=== PATIENT | female | born 1965 | race Caucasian/White ===

== ENCOUNTER 2018-10-18 12:10 | Emergency (ER) | payer BC, OTHER ==
[~2018-10-18] VITALS: Ht 177.8 cm; Wt 122.7 kg
[~2018-10-18 12:10] MED LIST: ACET-812 PO; MULT1TAB74 PO; PANT40TA4 PO
[2018-10-18] MEDS ORDERED: ibuprofen tablet 400 MG TABLET PO ONE (12:40)
[2018-10-18] MEDS ORDERED: ibuprofen 200mg tablet PO ONE (12:40)
[2018-10-18] MEDS ORDERED: nitroGLYCERIN 0.4mg SUBLingual tab SL PRN (12:40)
[2018-10-18] MEDS ORDERED: mag hydrox/Alum hydrox/simeth 30ml oral suspension PO ONE (12:50)
[2018-10-18] MEDS ORDERED: LIDOcaine Viscous 15ml cup PO ONE (12:50)
[2018-10-18 12:51] LABS: BASOPHILS % (AUTO) 0.4 % (0-1); EOSINOPHILS # (AUTO) 0.1 X10'3 (0-0.9); EOSINOPHILS % (AUTO) 2.8 % (0-6); HEMATOCRIT 38.8 % (35.0-45.0); HEMOGLOBIN 13.1 g/dl (12.0-16.0); LYMPHOCYTES # (AUTO) 1.6 X10'3 (1.1-4.8); LYMPHOCYTES % (AUTO) 29.9 % (21-51); MEAN CORPUSCULAR HEMOGLOBIN 29.5 PG (27.0-31.0); MEAN CORPUSCULAR HGB CONC 33.8 % (33.0-36.5); MEAN CORPUSCULAR VOLUME 87.2 FL (78-98); MEAN PLATELET VOLUME 7.4 FL (7.4-10.4); MONOCYTES # (AUTO) 0.3 X10'3 (0-0.9); MONOCYTES % (AUTO) 5.5 % (2-12); NEUTROPHILS # (AUTO) 3.3 X10'3 (1.8-7.7); NEUTROPHILS % (AUTO) 61.4 % (42-75); PLATELET COUNT 182 X10'3 (140-440); RED BLOOD COUNT 4.46 X10'6 (4.20-5.60); RED CELL DISTRIBUTION WIDTH 13.3 % (11.5-14.5); WHITE BLOOD COUNT 5.3 X10'3 (4.5-11.0)
[2018-10-18 13:05] LABS: ALANINE AMINOTRANSFERASE 42 U/L (12-78); ALBUMIN 3.8 G/DL (3.4-5.0); ALBUMIN/GLOBULIN RATIO 1.3 (1.1-1.5); ALKALINE PHOSPHATASE 105 IU/L (46-116); ANION GAP 10 (8-16); ASPARTATE AMINO TRANSFERASE 23 U/L (10-37); BILIRUBIN,TOTAL 0.4 MG/DL (0.1-1.0); BLOOD UREA NITROGEN 13 MG/DL (7-18); BUN/CREATININE RATIO 17.1 (6.6-38.0); CALCIUM 9.6 MG/DL (8.5-10.1); CHLORIDE 106 MMOL/L (99-107); CREATININE 0.76 MG/DL (0.40-0.90); GLUCOSE 108 MG/DL (70-104); POTASSIUM 3.8 MMOL/L (3.5-5.1); SODIUM 144 MMOL/L (135-145); TOTAL CARBON DIOXIDE 27.8 MMOL/L (24-32); TOTAL PROTEIN 6.8 G/DL (6.4-8.2); eGFR 80 ML/MIN
[2018-10-18 13:31] LABS: PARTIAL THROMBOPLASTIN TIME 27 SECONDS (22-32); PROTHROMBIN TIME 10.1 SECONDS (9.0-12.0)
[2018-10-18 15:49] VITALS: BP 127/88
== END 2018-10-18 15:53 | disposition home or self-care (01) ==
LOC: ER 12:10
DX: R07.89 Other chest pain (principal); Z98.890 Other specified postprocedural states; Z79.899 Other long term (current) drug therapy; Z88.5 Allergy status to narcotic agent; Z88.6 Allergy status to analgesic agent
CPT/HCPCS: 36415; 71045; 80053; 83880; 84484; 85025; 85610; 85730; 93005; 99284

== ENCOUNTER 2022-01-21 11:20 | Day surgery (SDC) | payer BC ==
[2022-01-20 10:27] LABS: BASOPHILS % (AUTO) 0.3 % (0-1); EOSINOPHILS # (AUTO) 0.2 X10'3 (0-0.9); EOSINOPHILS % (AUTO) 2.8 % (0-6); LYMPHOCYTES % (AUTO) 27.9 % (21-51); MEAN CORPUSCULAR HEMOGLOBIN 29.1 PG (27.0-31.0); MEAN CORPUSCULAR HGB CONC 34.5 g/dL (33.0-36.5); MEAN CORPUSCULAR VOLUME 84.3 FL (78-98); MEAN PLATELET VOLUME 7.7 FL (7.4-10.4); MONOCYTES # (AUTO) 0.6 X10'3 (0-0.9); MONOCYTES % (AUTO) 7.9 % (2-12); NEUTROPHILS # (AUTO) 4.4 X10'3 (1.8-7.7); NEUTROPHILS % (AUTO) 61.1 % (42-75); PRE OP HEMATOCRIT 42.4 % (35.0-45.0); PRE OP HEMOGLOBIN 14.6 g/dL (12.0-16.0); PRE OP PLATELET COUNT 191 X10'3 (140-440); RED BLOOD COUNT 5.02 X10'6 (4.20-5.60); RED CELL DISTRIBUTION WIDTH 13.6 % (11.5-14.5)
[2022-01-20 10:43] LABS: ALBUMIN 4.2 G/DL (3.4-5.0); ALBUMIN/GLOBULIN RATIO 1.2 (1.1-1.5); ALKALINE PHOSPHATASE 116 IU/L (46-116); BLOOD UREA NITROGEN 15 MG/DL (7-18); BUN/CREATININE RATIO 20.3 (6.6-38.0); CALCIUM 8.9 MG/DL (8.5-10.1); CHLORIDE 106 MMOL/L (99-107); CREATININE 0.74 MG/DL (0.40-0.90); PRE OP ALT 45 U/L (30-65); PRE OP ANION GAP 5 (8-16); PRE OP AST 28 U/L (10-37); PRE OP BILIRUB, TOTAL 0.4 MG/DL (0.0-1.0); PRE OP GLUCOSE 122 MG/DL (70-104); PRE OP POTASSIUM 3.5 MMOL/L (3.4-5.1); PRE OP SODIUM 141 MMOL/L (135-145); TOTAL CARBON DIOXIDE 29.9 MMOL/L (24-32); TOTAL PROTEIN 7.7 G/DL (6.4-8.2); eGFR 81 ML/MIN
[~2022-01-21] VITALS: Ht 177.8 cm; Wt 131.5 kg
[2022-01-21] VITALS (10 sets, daily range): BP systolic 114–135; BP diastolic 51–60
[~2022-01-21 11:20] MED LIST changes: -ACET-812 PO; +ALBU8.5H17 IH; +ASCO-134 PO; +ATEN25TA2 PO; +FURO20TA4 PO; +HYDR12.55 PO; +LORA-641 PO; +MULT-620 PO; -MULT1TAB74 PO; -PANT40TA4 PO; +POTA10TA37 PO; +ZINC50TA60 PO; +ceFAZolin inj. 3,000 MG in normal saline 100ml IV soln 100 ML IV ONE; +famotidine 20mg tablet PO ONE; +ringers solution, lacted 1,000 ML IV SCH; +vancomycin 1,500 MG in NS 300ml IV soln IV ONE
--- NOTE | 2022-01-21 13:13 | NUR ---
PT COMPLAINS OF PAIN AT IV SITE, NO SIGN OF INFILTRATION, VANCOMYCIN RATE DECREASED WITH GOOD RESULTS
--- NOTE | 2022-01-21 14:13 | NUR ---
IV SITE RECHECKED, NO SIGN OF INFILTRATION, PT DENIES PAIN AT THE SITE NOW SINCE VANCOMYCIN RATE WAS DECREASED.
[2022-01-21] MEDS ORDERED: LIDOcaine 1% (10mg/ml) 2ml vial ONE (15:03)
[2022-01-21] MEDS ORDERED: triamcinolone acetonide 40mg/ml inj ONE ×2 (16:16→17:19)
[2022-01-21] MEDS ORDERED: BUPIVAcaine 0.5% inj/PF 30 ML ONE ×2 (16:17→17:19)
[2022-01-21] MEDS ORDERED: midazolam 1 mg/ML 2ml injection ONE (16:38)
[2022-01-21] MEDS ORDERED: fentaNYL /PF 50mcg/ml 5ml ampule ONE (16:50)
[2022-01-21] MEDS ORDERED: propofol inj 20 ML IV ONE (16:52)
[2022-01-21] MEDS ORDERED: dexamethasone sod phosphate 4mg/ml inj. ONE (16:52)
[2022-01-21] MEDS ORDERED: LIDOcaine 2% (20mg/ml) 5ml vial ONE (16:52)
[2022-01-21] MEDS ORDERED: ondansetron/PF 4mg/2ml inj ONE (16:53)
[2022-01-21] MEDS ORDERED: ketorolac trometh. 30mg/ml inj. IV ONE (17:00)
[2022-01-21] MEDS ORDERED: ondansetron/PF 4mg/2ml inj IV PRN (17:00)
[2022-01-21] MEDS ORDERED: HYDROmorphone/PF 0.2 MG/ML SYRINGE IV PRN ×2 (17:00)
[2022-01-21] MEDS ORDERED: ringers solution, lacted 1,000 ML IV SCH (17:00)
[2022-01-21] MEDS ORDERED: proCHLORperazine 10 MG/2 ml inj IV PRN (17:00)
[2022-01-21] MEDS ORDERED: meperidine/PF 25mg/ml syringe IV PRN ×3 (17:00)
[2022-01-21] MEDS ORDERED: acetaminophen 1,000mg/100ml IV 100 ML IV PRN (17:00)
[2022-01-21] MEDS ORDERED: labetalol 20mg/4ml (5mg/ml) syringe IV PRN (17:00)
[2022-01-21] MEDS ORDERED: hydrALAZINE 20mg/ml inj. IV PRN (17:00)
[2022-01-21] MEDS ORDERED: BUPIVAcaine 0.5% inj/PF 30 ml vial IJ ONE (17:30)
--- NOTE | 2022-01-21 18:00 | NUR ---
Received from OR via BED, accompanied by Anesthesiologist DR WHITMORE and report given by Anesthesiologist. PT DROWSY, DENIES PAIN, RIGHT KNEE W/EMILIO WRAP COVERING INCISION/DRSG CDI, ICE PACK PLACED. Addendum: 01/21/22 at 1818 by Candace Rubio RN Amended: Links added.
[2022-01-21] MEDS ORDERED: oxyCODONE/APAP 5-325mg tablet PO ONE (18:50)
--- NOTE | 2022-01-21 19:40 | NUR ---
PT UP AND ABLE TO AMBULATE TO BATHROOM WITH WALKER SAFELY, PT VOIDED, PAIN IMPROVED. D/C INSTRUCTIONS GIVEN AND GONE OVER W/PT AND PTS WHO VERBALIZED UNDERSTANDING. PT D/CD TO HOME VIA W/C TO PRIVATE VEHICLE W/O INCIDENT. Addendum: 01/21/22 at 1949 by Candace Rubio RN Amended: Links added.
== END 2022-01-21 19:40 | disposition home or self-care (01) ==
LOC: PAS 11:20
PROVIDERS: ATTEND Orthopaedic Surgery
DX: S83.231A Complex tear of medial meniscus, current injury, right knee, initial encounter (principal); S83.271A Complex tear of lateral meniscus, current injury, right knee, initial encounter; M17.11 Unilateral primary osteoarthritis, right knee; M94.261 Chondromalacia, right knee; J45.909 Unspecified asthma, uncomplicated; I10 Essential (primary) hypertension; G43.909 Migraine, unspecified, not intractable, without status migrainosus; E66.01 Morbid (severe) obesity due to excess calories; Z68.41 Body mass index [BMI] 40.0-44.9, adult; Z90.49 Acquired absence of other specified parts of digestive tract; Z98.890 Other specified postprocedural states; Z90.710 Acquired absence of both cervix and uterus; Z85.828 Personal history of other malignant neoplasm of skin; Z86.14 Personal history of Methicillin resistant Staphylococcus aureus infection; Z79.899 Other long term (current) drug therapy; Z20.822 Contact with and (suspected) exposure to COVID-19; Z88.5 Allergy status to narcotic agent; X58.XXXA Exposure to other specified factors, initial encounter; Y93.89 Activity, other specified; Y92.89 Other specified places as the place of occurrence of the external cause; Y99.8 Other external cause status
CPT/HCPCS: 29873; 29879; 29880; 36415; 80053; 82948; 85025; 87635; 93005; C9803; J0131; J0690; J1100; J1885; J2175; J2250; J2405; J2704; J3010; J3301; J3370; J3490; J7040; J7120; S0020; Z7506; Z7508; Z7512; A4215; A4618; A6250; A6449; A7000

== ENCOUNTER 2022-05-06 23:07 | Inpatient (IN) | payer BC ==
[~2022-05-06] VITALS: Ht 177.8 cm; Wt 134.1 kg
[~2022-05-06 23:07] MED LIST changes: -ceFAZolin inj. 3,000 MG in normal saline 100ml IV soln 100 ML IV ONE; -famotidine 20mg tablet PO ONE; -ringers solution, lacted 1,000 ML IV SCH; -vancomycin 1,500 MG in NS 300ml IV soln IV ONE
[2022-05-07] VITALS (8 sets, daily range): BP systolic 129–152; BP diastolic 56–66
[2022-05-07 01:06] LABS: ALANINE AMINOTRANSFERASE 34 U/L (12-78); ALBUMIN 3.8 G/DL (3.4-5.0); ALBUMIN/GLOBULIN RATIO 1.3 (1.1-1.5); ALKALINE PHOSPHATASE 98 IU/L (46-116); ANION GAP 7 (8-16); ASPARTATE AMINO TRANSFERASE 19 U/L (10-37); BILIRUBIN,TOTAL 0.4 MG/DL (0.1-1.0); BLOOD UREA NITROGEN 15 MG/DL (7-18); BUN/CREATININE RATIO 17.2 (6.6-38.0); CALCIUM 8.9 MG/DL (8.5-10.1); CHLORIDE 105 MMOL/L (99-107); CREATININE 0.87 MG/DL (0.40-0.90); GLUCOSE 125 MG/DL (70-104); POTASSIUM 3.6 MMOL/L (3.5-5.1); SODIUM 142 MMOL/L (135-145); TOTAL CARBON DIOXIDE 29.6 MMOL/L (24-32); TOTAL PROTEIN 6.7 G/DL (6.4-8.2); eGFR 67 ML/MIN
[2022-05-07 01:29] LABS: BASOPHILS % (AUTO) 0.5 % (0-1); EOSINOPHILS # (AUTO) 0.2 X10'3 (0-0.9); EOSINOPHILS % (AUTO) 2.2 % (0-6); HEMATOCRIT 38.7 % (35.0-45.0); HEMOGLOBIN 13.8 g/dl (12.0-16.0); LYMPHOCYTES # (AUTO) 2.5 X10'3 (1.1-4.8); LYMPHOCYTES % (AUTO) 25.6 % (21-51); MEAN CORPUSCULAR HEMOGLOBIN 30.1 PG (27.0-31.0); MEAN CORPUSCULAR HGB CONC 35.7 g/dL (33.0-36.5); MEAN CORPUSCULAR VOLUME 84.2 FL (78-98); MEAN PLATELET VOLUME 7.7 FL (7.4-10.4); MONOCYTES # (AUTO) 0.7 X10'3 (0-0.9); MONOCYTES % (AUTO) 6.9 % (2-12); NEUTROPHILS # (AUTO) 6.3 X10'3 (1.8-7.7); NEUTROPHILS % (AUTO) 64.8 % (42-75); PLATELET COUNT 179 X10'3 (140-440); RED CELL DISTRIBUTION WIDTH 13.9 % (11.5-14.5); WHITE BLOOD COUNT 9.7 X10'3 (4.5-11.0)
[2022-05-07] MEDS ORDERED: enoxaparin 100mg/ml syringe SUBCUT ONE (01:30)
[2022-05-07] MEDS ORDERED: nitroGLYCERIN 0.2mg/hour patch TD ONE (01:30)
[2022-05-07] MEDS ORDERED: normal saline 1000ml 1,000 ML IV ONE (01:30)
[2022-05-07] MEDS ORDERED: mag hydrox/Alum hydrox/simeth 30ml oral suspension PO PRN (02:15)
[2022-05-07] MEDS ORDERED: diphenhydrAMINE 50 mg/ml inj IV PRN (02:15)
[2022-05-07] MEDS ORDERED: HYDROcodone/acetaminophen 10/325mg tab PO PRN (02:15)
[2022-05-07] MEDS ORDERED: bisacodyl 10mg suppository rectal RC PRN (02:15)
[2022-05-07] MEDS ORDERED: normal saline 1000ml 1,000 ML IV SCH (02:15)
[2022-05-07] MEDS ORDERED: magnesium hydroxide 30ml (MOM) UD suspension PO PRN (02:15)
[2022-05-07] MEDS ORDERED: ondansetron/PF 4mg/2ml inj IV PRN (02:15)
[2022-05-07] MEDS ORDERED: acetaminophen 650mg rectal suppository RC PRN (02:15)
[2022-05-07] MEDS ORDERED: diphenhydrAMINE 25mg capsule PO PRN (02:15)
[2022-05-07] MEDS ORDERED: ondansetron 4mg rapidly disintigrating tab PO PRN (02:15)
[2022-05-07] MEDS ORDERED: acetaminophen 325mg tablet PO PRN ×2 (02:15)
[2022-05-07] MEDS ORDERED: morphine 2 MG/ML inj. syringe IV PRN ×2 (02:15)
[2022-05-07] MEDS ORDERED: HYDROmorphone inj. 0.5 MG/0.5 ML DISP.SYRIN IV PRN (02:15)
[2022-05-07] MEDS ORDERED: HYDROcodone/acetaminophen 5mg/325mg tablet PO PRN (02:15)
[2022-05-07] MEDS ORDERED: metoprolol tartrate 1mg/ml inj IV PRN (02:20)
[2022-05-07] MEDS ORDERED: nitroGLYCERIN 0.4mg SUBLingual tab SL PRN (02:20)
[2022-05-07 02:41] LABS: HEMOGLOBIN A1C 5.8 % (4.5-6.2)
[2022-05-07 02:48] LABS: CREATINE KINASE 76 U/L (26-192); LIPASE 79 U/L (73-393); PHOSPHORUS 3.9 MG/DL (2.3-4.5)
[2022-05-07 03:32] LABS: APTT 25 SECONDS (22-32); D-DIMER 0.29 MG/L FEU (0-0.50)
--- NOTE | 2022-05-07 06:45 | NUR ---
FIRST CONTACT WITH PT, FOUND SUPINE IN BED. DENIES CHEST PAIN AT THIS TIME, REPORTS SOME LIGHTHEADEDNESS AFTER AMBULATION TO RESTROOM. UPDATED PT ON POC AND STATUS. PT TO NUC MED AT THIS TIME WITH TECH. NO DISTRESS.
[2022-05-07] MEDS ORDERED: pantoprazole 40mg Tablet.DR PO SCH (07:30)
--- NOTE | 2022-05-07 07:36 | NUR ---
nitro patch removed for stress test procedure per nuc med.
[2022-05-07] MEDS ORDERED: heparin, porcine 5000 units/ml vial SQ SCH (08:00)
[2022-05-07] MEDS ORDERED: nitroGLYCERIN 0.2mg/hour patch TD SCH (08:00)
[2022-05-07] MEDS ORDERED: aspirin 81mg, enteric-coated 1 TAB TABLET.DR PO SCH (08:00)
[2022-05-07] MEDS ORDERED: docusate sod 100mg capsule PO SCH (08:00)
--- NOTE | 2022-05-07 08:28 | NUR ---
pt to nuc med on monitor with RN for stress test
[2022-05-07] MEDS ORDERED: regadenoson 0.4mg/5ml syringe IV ONE (08:55)
[2022-05-07] MEDS ORDERED: aminophylline 500mg/20ml vial ONE (09:03)
--- NOTE | 2022-05-07 11:52 | NUR ---
RELIEVING RN FOR BREAK, PT IS RESTING QUIETLY ON BED, FAMILY AT BEDSIDE, PT IS GOING TO BE DC'D HOME, GAVE HER SANDWICH AND JUICE, ALMA WELL, NO N/V
[2022-05-07] MEDS ORDERED: iohexol 350MG/ML 100ml bottle IV ONE (12:11)
[2022-05-07] MEDS ORDERED: temazepam 15mg capsule PO PRN (21:00)
== END 2022-05-07 14:03 | disposition home or self-care (01) | DRG 313 ==
LOC: ER 23:08 → ED HOLD 05-07 02:16
PROVIDERS: ADMIT Family Medicine; ATTEND Family Medicine
PROC: 4A02XM4 Measurement of Cardiac Total Activity, External Approach (ICD-10-PCS; principal; 2022-05-07)
PROC: 3E033HZ Introduction of Radioactive Substance into Peripheral Vein, Percutaneous Approach (ICD-10-PCS; 2022-05-07)
PROC: BW251ZZ Computerized Tomography (CT Scan) of Chest, Abdomen and Pelvis using Low Osmolar Contrast (ICD-10-PCS; 2022-05-07)
DX: R07.2 Precordial pain (principal); I50.33 Acute on chronic diastolic (congestive) heart failure; N17.9 Acute kidney failure, unspecified; Z68.41 Body mass index [BMI] 40.0-44.9, adult; I11.0 Hypertensive heart disease with heart failure; E66.01 Morbid (severe) obesity due to excess calories; R00.1 Bradycardia, unspecified; E78.5 Hyperlipidemia, unspecified; I25.10 Atherosclerotic heart disease of native coronary artery without angina pectoris; I48.91 Unspecified atrial fibrillation; Z82.49 Family history of ischemic heart disease and other diseases of the circulatory system; Z86.16 Personal history of COVID-19; Z28.310 Unvaccinated for COVID-19; Z88.8 Allergy status to other drugs, medicaments and biological substances; Z79.899 Other long term (current) drug therapy
CPT/HCPCS: 36415; 71045; 71275; 74174; 78452; 80053; 82550; 83036; 83690; 83735; 83880; 84100; 84443; 84484; 85025; 85379; 85610; 85730; 93005; 93017; 93306; 99285; A9500; G0378; J0280; J1644; J1650; J2785; J3490; J7030; Q9967

== ENCOUNTER 2023-03-20 14:10 | Emergency (ER) | payer BC ==
[~2023-03-20] VITALS: Ht 177.8 cm; Wt 127.3 kg
[~2023-03-20 14:10] MED LIST changes: +ACET-2615 PO; +FENO120T5 PO; +IBUP-1984 PO; -LORA-641 PO; +POTA-206 PO; -POTA10TA37 PO; -ZINC50TA60 PO
[2023-03-20 16:10] LABS: BASOPHILS % (AUTO) 0.8 % (0-1); EOSINOPHILS # (AUTO) 0.3 X10'3 (0-0.9); EOSINOPHILS % (AUTO) 4.7 % (0-6); HEMATOCRIT 40.1 % (35.0-45.0); HEMOGLOBIN 14.1 g/dl (12.0-16.0); LYMPHOCYTES # (AUTO) 2.1 X10'3 (1.1-4.8); LYMPHOCYTES % (AUTO) 33.9 % (21-51); MEAN CORPUSCULAR HEMOGLOBIN 30.1 PG (27.0-31.0); MEAN CORPUSCULAR HGB CONC 35.2 g/dL (33.0-36.5); MEAN CORPUSCULAR VOLUME 85.3 FL (78-98); MEAN PLATELET VOLUME 7.9 FL (7.4-10.4); MONOCYTES # (AUTO) 0.5 X10'3 (0-0.9); MONOCYTES % (AUTO) 7.7 % (2-12); NEUTROPHILS # (AUTO) 3.2 X10'3 (1.8-7.7); NEUTROPHILS % (AUTO) 52.9 % (42-75); PLATELET COUNT 187 X10'3 (140-440); RED CELL DISTRIBUTION WIDTH 14.4 % (11.5-14.5); WHITE BLOOD COUNT 6.1 X10'3 (4.5-11.0)
[2023-03-20 16:16] LABS: ALANINE AMINOTRANSFERASE 33 U/L (12-78); ALBUMIN 4.2 G/DL (3.4-5.0); ALBUMIN/GLOBULIN RATIO 1.4 (1.1-1.5); ALKALINE PHOSPHATASE 82 IU/L (46-116); ANION GAP 5 (8-16); ASPARTATE AMINO TRANSFERASE 25 U/L (10-37); BILIRUBIN,TOTAL 0.4 MG/DL (0.1-1.0); BLOOD UREA NITROGEN 20 MG/DL (7-18); BUN/CREATININE RATIO 16.9 (10.0-20.0); CALCIUM 9.9 MG/DL (8.5-10.1); CHLORIDE 104 MMOL/L (99-107); CREATININE 1.18 MG/DL (0.40-0.90); GLUCOSE 108 MG/DL (70-104); POTASSIUM 3.8 MMOL/L (3.5-5.1); SODIUM 142 MMOL/L (135-145); TOTAL CARBON DIOXIDE 32.7 MMOL/L (24-32); TOTAL PROTEIN 7.2 G/DL (6.4-8.2); eGFR 47 ML/MIN
[2023-03-20 18:21] VITALS: BP 166/55
== END 2023-03-20 18:53 | disposition home or self-care (01) ==
LOC: ER 14:11
DX: R51.9 Headache, unspecified (principal); H53.9 Unspecified visual disturbance; I51.9 Heart disease, unspecified; Z88.5 Allergy status to narcotic agent; Z88.8 Allergy status to other drugs, medicaments and biological substances; Z79.899 Other long term (current) drug therapy
CPT/HCPCS: 36415; 70551; 80053; 85025; 93005; 99284

== ENCOUNTER 2024-10-15 16:23 | Outpatient (CLI) | payer OTHER | END 2024-10-15 23:59 | disposition home or self-care (01) | LOC: MRI02 16:23 | PROVIDERS: ATTEND Preventive Medicine Occupational Medicine | DX: M75.111 Incomplete rotator cuff tear or rupture of right shoulder, not specified as traumatic (principal); M75.51 Bursitis of right shoulder; M89.311 Hypertrophy of bone, right shoulder; M25.811 Other specified joint disorders, right shoulder | CPT/HCPCS: 73221 ==

== ENCOUNTER 2024-11-17 13:13 | Emergency (ER) | payer BC, OTHER ==
[~2024-11-17] VITALS: Ht 177.8 cm; Wt 136.7 kg
[2024-11-17 13:15] VITALS: TEMP 97.7
[2024-11-17 13:44] LABS: BILIRUBIN,URINE NEGATIVE (Neg); CLARITY,URINE CLEAR (Clear); COLOR,URINE YELLOW (Yellow); GLUCOSE, URINE NEGATIVE (Neg); KETONES,URINE NEGATIVE (Neg); LEUKOCYTE ESTERASE ,URINE SMALL (Neg); NITRITES, URINE POSITIVE (Neg); OCCULT BLOOD,URINE NEGATIVE (Neg); PROTEIN,URINE NEGATIVE (Neg); UROBILINOGEN,URINE 0.2 E.U/dL (0.2-1.0)
[2024-11-17 13:45] LABS: URINE HCG NEGATIVE (NEG)
[2024-11-17 13:48] LABS: UA COLLECTION TYPE CLN CATCH MIDSTREAM
[2024-11-17 13:49] LABS: BACTERIA,URINE 4+ /HPF (Neg); MUCUS STRANDS FEW /LPF (Neg); RBC,URINE 0-2 /HPF (0-2); SQUAMOUS EPITHELIAL CELL,UR FEW /LPF (FEW); WBC,URINE 0-4 /HPF (0-4)
[2024-11-17 14:32] LABS: BASOPHILS # (AUTO) 0.1 X10'3 (0-0.2); BASOPHILS % (AUTO) 0.9 % (0-1); EOSINOPHILS # (AUTO) 0.2 X10'3 (0-0.9); EOSINOPHILS % (AUTO) 2.4 % (0-6); HEMATOCRIT 40.5 % (35.0-45.0); HEMOGLOBIN 14.4 g/dl (12.0-16.0); LYMPHOCYTES # (AUTO) 2.3 X10'3 (1.1-4.8); MEAN CORPUSCULAR HEMOGLOBIN 30.6 PG (27.0-31.0); MEAN CORPUSCULAR HGB CONC 35.6 g/dL (33.0-36.5); MEAN PLATELET VOLUME 7.9 FL (7.4-10.4); MONOCYTES # (AUTO) 0.4 X10'3 (0-0.9); MONOCYTES % (AUTO) 5.8 % (2-12); NEUTROPHILS # (AUTO) 4.5 X10'3 (1.8-7.7); NEUTROPHILS % (AUTO) 59.9 % (42-75); PLATELET COUNT 182 X10'3 (140-440); RED BLOOD COUNT 4.72 X10'6 (4.20-5.60); RED CELL DISTRIBUTION WIDTH 13.6 % (11.5-14.5); WHITE BLOOD COUNT 7.5 X10'3 (4.5-11.0)
[2024-11-17 14:39] LABS: ALANINE AMINOTRANSFERASE 39 U/L (12-78); ALBUMIN 3.9 G/DL (3.4-5.0); ALBUMIN/GLOBULIN RATIO 1.2 (1.1-1.5); ALKALINE PHOSPHATASE 119 IU/L (46-116); ANION GAP 8 (8-16); ASPARTATE AMINO TRANSFERASE 27 U/L (10-37); BILIRUBIN,TOTAL 0.5 MG/DL (0.1-1.0); BLOOD UREA NITROGEN 18 MG/DL (7-18); BUN/CREATININE RATIO 26.1 (10.0-20.0); CALCIUM 9.1 MG/DL (8.5-10.1); CHLORIDE 103 MMOL/L (99-107); CREATININE 0.69 MG/DL (0.40-0.90); GLUCOSE 144 MG/DL (70-104); LIPASE 42 U/L (16-77); POTASSIUM 4.1 MMOL/L (3.5-5.1); SODIUM 138 MMOL/L (135-145); TOTAL CARBON DIOXIDE 27.5 MMOL/L (24-32); TOTAL PROTEIN 7.1 G/DL (6.4-8.2); eCRCL 96 ML/MIN; eGFR 87 ML/MIN
[2024-11-17] MEDS ORDERED: CEPH-585 PO (15:18)
[2024-11-17] MEDS: cephalexin 250mg capsule PO ONE (15:21)
[2024-11-17 15:31] VITALS: BP 132/73; PULSE 60; RESP 15; O2SAT 95
== END 2024-11-17 15:33 | disposition home or self-care (01) ==
LOC: ER 13:14
DX: N12 Tubulo-interstitial nephritis, not specified as acute or chronic (principal); Z88.5 Allergy status to narcotic agent; Z98.890 Other specified postprocedural states; Z90.49 Acquired absence of other specified parts of digestive tract
CPT/HCPCS: 36415; 80053; 81001; 81025; 83690; 85025; 87077; 87088; 87186; 93005; 99284

== ENCOUNTER 2025-03-17 13:45 | Emergency (ER) | payer BC ==
[~2025-03-17] VITALS: Ht 177.8 cm; Wt 131.8 kg
[~2025-03-17 13:45] MED LIST changes: +CEPH-585 PO
[2025-03-17 13:51] VITALS: BP 188/81; PULSE 72; RESP 18; O2SAT 97
--- NOTE | 2025-03-17 15:02 | Physician Documentation ---
History of Present Illness ~ Chief Complaint: Bite-insect Stated Complaint: POSS BUG BITE Time Seen by MD: 13:58 Primary Medical Doctor: Alexx WAGNER Patient is seen today with complaints of area of redness and warmth and that is painful on her posterior left calf area that just started this morning. Patient states it has progressively worsened over the course of the day. Patient does admit to history of MRSA infection years ago. Patient denies any fevers or chills or anything. Patient has no new or other concern or complaint at this time. Tetanus within 5 years?: No Medication Reconciliation Allergies: Coded Allergies: morphine (Verified Adverse Reaction, Intermediate, SEVERE HEADACHES, 03/20/23) REPORTED regadenoson (Verified Adverse Reaction, Intermediate, 03/20/23) PT BECAME VERY SHAKY AND COLD, 5 MINS AFTER INJECTION FOR STRESS TEST. LASTED FOR 30 MINS. Scheduled Ascorbic Acid (Ascorbic Acid), 1 TAB PO DAILY, (Reported) Atenolol (Atenolol), 1 TAB PO HS, (Reported) Cephalexin*Monohydrate* (Keflex*), 1 CAP PO QID Fenofibrate (Fenofibrate), 1 TAB PO DAILY, (Reported) Furosemide (Furosemide), 1 TAB PO DAILY, (Reported) Hydrochlorothiazide (Hydrochlorothiazide), 1 TAB PO DAILY, (Reported) Multivitamins (Multivitamins), 1 TABLET PO DAILY, (Reported) Potassium Chloride (K-Dur), 8 MEQ PO DAILY, (Reported) Scheduled PRN Acetaminophen (Tylenol Extra Strength), 2 TAB PO BID PRN for pain, (Reported) Albuterol Sulfate (Proair Hfa), 2 PUFFS IH Q4H PRN for SOB or wheezing, (Reported) Ibuprofen* (Motrin*), 800 MG PO QID PRN for pain, (Reported) Past Medical History Past Medical History: Arrhythmia Past Surgical History: abdominal surgery, orthopedic surgeries Alcohol Use: None Drug Use: none Lives with: Spouse Lives In: Home Occupation: employed Review of Systems Constitutional: Denies: chills, fever, weakness Eyes: Denies: pain, blurred vision ENT: Denies: ear pain, nose pain, throat pain, mouth pain Respiratory: Denies: cough, shortness of breath Cardiovascular: Denies: chest pain, palpitations Gastrointestinal: Denies: abdominal pain, nausea, vomiting Genitourinary: Denies: burning, dysuria Female Genitalia: Denies: vaginal discharge, pelvic pain Neurological: Denies: headache, dizziness Musculoskeletal: Denies: pain, swelling Integumentary: Denies: rash, lesions Allergic/Immunologic: Denies: hives, itching Hematologic/Lymphatic: Denies: no symptoms reported Psychiatric: Denies: depression, anxiety Physical Exam Vital Signs: Temperature: 97.5, Source: Temporal, Heart Rate: 72, Respiratory Rate: 18, BP: 188/81, Pulse Oximetry: 97, Weight: 131.820 Oxygen Flow Rate: 0 Physical Exam General: Awake and Alert, no acute distress. HEENT: Conjunctiva pink, Sclera clear, Mucus Membranes moist. Neck: Supple without masses and tenderness. Resp: Unlabored. Lungs clear to auscultation bilaterally. Heart: Regular Rate and rhythm, normal S1 and S2 without murmur, rub or gallop. Extremities: No cyanosis,clubbing or edema. Skin: Exam does have area approximately 4 cm in diameter that is very erythematous and indurated and significantly tender to palpation with a small centralized punctate sore. I do not appreciate any purulence or drainage at this time. Progress Results/Orders Results/Orders Vital Signs 03/17/25 13:51 Temp 97.5 Pulse 72 Resp 18 B/P (MAP) 188/81 Pulse Ox 97 O2 Flow Rate 0 Medical Decision Making Findings Patient is seen today with complaints of area of redness and warmth and that is painful on her posterior left calf area that just started this morning. Patient states it has progressively worsened over the course of the day. Patient does admit to history of MRSA infection years ago. Patient denies any fevers or chills or anything. Patient has no new or other concern or complaint at this time. Prescription of Bactrim DS given to patient by mouth in the ED tonight. Prescription of same sent to patient pharmacy to be taken by mouth twice a day for 10 days. Patient will follow up with primary care in 2-5 days if no better as needed sooner. Return to ED with any worsening, concerning or changing symptoms. Shared decision-making utilized today with the patient. Departure Disposition: HOME / SELF CARE / HOMELESS Impression: Primary Impression: Cellulitis Qualified Codes: L03.116 - Cellulitis of left lower limb Condition: Stable Discharge Instructions: Cellulitis, Adult Additional Instructions: Prescription of Bactrim DS given to patient by mouth in the ED tonight. Prescription of same sent to patient pharmacy to be taken by mouth twice a day for 10 days. Patient will follow up with primary care in 2-5 days if no better as needed sooner. Return to ED with any worsening, concerning or changing symptoms. Shared decision-making utilized today with the patient. Referrals: NO PRIMARY CARE PROVIDER (PCP) Prescriptions Sulfamethoxazole/Trimethoprim (Bactrim Ds Tablet) 800 Mg-160 Mg Tablet 1 TAB PO Q12H for 10 Days, #20 TAB Prov: PROSPER KARIMI 03/17/25 Signature Scribe Signature: No scribe Attestation: No scribe PROSPER KARIMI March 17, 2025 15:02
[2025-03-17] MEDS ORDERED: SULF1TAB49 PO (15:07)
[2025-03-17] MEDS: sulfamethoxazole/trimethoprim DS (800/160mg) tablet PO STA (15:31)
[2025-03-17 15:49] VITALS: TEMP 97.5
== END 2025-03-17 15:51 | disposition home or self-care (01) ==
LOC: ER 13:45
DX: L03.116 Cellulitis of left lower limb (principal); Z88.5 Allergy status to narcotic agent
CPT/HCPCS: 99283

== ENCOUNTER 2025-03-19 17:12 | Emergency (ER) | payer BC ==
[~2025-03-19] VITALS: Ht 177.8 cm; Wt 133.2 kg
[~2025-03-19 17:12] MED LIST changes: +SULF1TAB49 PO
--- NOTE | 2025-03-19 18:02 | Physician Documentation ---
History of Present Illness ~ Chief Complaint: Wound Stated Complaint: MASS ON SIDE Time Seen by MD: 22:18 Primary Medical Doctor: Alexx WAGNER This is a 60-year-old female who presents with pain and swelling to her posterior left calf, patient was seen for this on Tuesday prescribed Bactrim, patient returns due to worsened the pain and swelling to the area. Patient reports subjective fever and chills. Dr. Gunderson: History as above. Reports compliance with her Bactrim. Tetanus within 5 years?: No Medication Reconciliation Allergies: Coded Allergies: morphine (Verified Adverse Reaction, Intermediate, SEVERE HEADACHES, 03/19/25) REPORTED regadenoson (Verified Adverse Reaction, Intermediate, 03/19/25) PT BECAME VERY SHAKY AND COLD, 5 MINS AFTER INJECTION FOR STRESS TEST. LASTED FOR 30 MINS. Scheduled Ascorbic Acid (Ascorbic Acid), 1 TAB PO DAILY, (Reported) Atenolol (Atenolol), 1 TAB PO HS, (Reported) Cephalexin*Monohydrate* (Keflex*), 1 CAP PO QID Cephalexin*Monohydrate* (Keflex*), 1 CAP PO Q12H Doxycycline Monohydrate (Doxycycline Monohydrate), 1 CAP PO Q12H Fenofibrate (Fenofibrate), 1 TAB PO DAILY, (Reported) Furosemide (Furosemide), 1 TAB PO DAILY, (Reported) Hydrochlorothiazide (Hydrochlorothiazide), 1 TAB PO DAILY, (Reported) Multivitamins (Multivitamins), 1 TABLET PO DAILY, (Reported) Potassium Chloride (K-Dur), 8 MEQ PO DAILY, (Reported) Sulfamethoxazole/Trimethoprim (Bactrim Ds Tablet), 1 TAB PO Q12H Scheduled PRN Acetaminophen (Tylenol Extra Strength), 2 TAB PO BID PRN for pain, (Reported) Albuterol Sulfate (Proair Hfa), 2 PUFFS IH Q4H PRN for SOB or wheezing, (Reported) Ibuprofen* (Motrin*), 800 MG PO QID PRN for pain, (Reported) Past Medical History Past Medical History: Arrhythmia Past Surgical History: abdominal surgery, orthopedic surgeries Alcohol Use: None Drug Use: none Lives with: Spouse Lives In: Home Occupation: employed Review of Systems ROS All review of systems negative except as per HPI Physical Exam Vital Signs: Temperature: 98.4, Source: Oral, Heart Rate: 79, Respiratory Rate: 16, BP: 174/65, Pulse Oximetry: 99, Weight: 133.200 Oxygen Flow Rate: 0 Physical Exam General: Patient is awake, alert, oriented x4 in no acute distress Head: Normocephalic and atraumatic. Eyes: Conjunctival normal. EOMI. PERRL. ENT: Mucous membranes moist. Neck: Supple, trachea is midline. Chest: Clear to auscultation bilaterally without rales, rhonchi, or wheezes. There is no accessory muscle use or retractions. Cardiac: RRR without murmurs, gallops, or rubs. Extremity: Draining abscess noted to patient's right posterior calf with associated 10 cm x 10 cm area of cellulitis. Drainage is honey-colored Procedures Procedures Incision and drainage: Status post informed verbal consent patient was sterilely cleaned and draped. 3 cc of lidocaine with epinephrine utilized to anesthetize patient's abscess. 11. Blade utilized to perform incision and drainage making a star-shaped 1 cm incision. Wound was de loculated and approximately 3 cc of blood and pus expressed. Bandage applied along with antibacterial ointment. The patient tolerated procedure well without complication. Total time of procedure 5 minutes. Progress Results/Orders Results/Orders Orders - ANGEL GUNDERSON MD Culture Body Fluid Order (03/19/25 22:27) Dressing Orders (03/19/25 22:27) Laceration/I&D Tray Set Up (03/19/25 22:27) Cult (Aer) Routine C&S+Gram St (03/19/25 23:15) Completed Orders - ANGEL GUNDERSON MD Ondansetron Disint. Tablet (Zofran Odt T (03/19/25 22:30) Hydrocodone/Apap 10/325 ([place] 10/325mg (03/19/25 22:30) Doxycycline 100mg Capsule (Vibramycin 10 (03/19/25 22:27) Cephalexin Capsule (Keflex Capsule) (03/19/25 22:30) Lidocaine 1% W/Epi 1:200,000 (Xylocaine (03/19/25 22:30) Bacitracin Ointment (Bacitracin Ointment (03/19/25 22:30) Lidocaine 1% W/Epi 1:100,000 (Xylocaine (03/19/25 23:00) Medications Received in ER Medications (Trade) Dose Ordered Sig/Kerry Route PRN Reason Start Time Stop Time Status Last Admin Dose Admin (Zofran ODT tablet) 8 mg ONCE ONCE PO 03/19/25 22:30 03/19/25 22:31 DC 03/19/25 22:47 8 MG ([place] 10/325mg tab) 1 tab ONCE ONCE PO 03/19/25 22:30 03/19/25 22:34 DC 03/19/25 22:46 1 TAB (VIBRAMYCIN 100mg capsule) 100 mg ONCE STAT PO 03/19/25 22:27 03/19/25 22:30 DC 03/19/25 22:47 100 MG (Keflex capsule) 500 mg ONCE ONCE PO 03/19/25 22:30 03/19/25 22:31 DC 03/19/25 22:46 500 MG (bacitracin ointment) 1 applic ONCE ONCE TP 03/19/25 22:30 03/19/25 22:34 DC 03/19/25 22:45 1 APPLIC Vital Signs 03/19/25 03/19/25 03/19/25 03/19/25 17:23 22:35 22:37 22:46 Temp 98.4 98.6 Pulse 79 70 Resp 16 16 18 16 B/P (MAP) 174/65 171/69 (103) Pulse Ox 99 97 O2 Flow Rate 0 0 Medical Decision Making Findings Patient presented to the emergency room for evaluation of wound to her affected leg as per HPI. Differentials include but are not limited to MRSA, abscess, cellulitis, sepsis. Patient's vitals are reassuring and he had not feel emergent labs are necessary. Patient is status post incision and drainage with good amount of purulent discharge expressed and I do not feel she requires admission. We will change antibiotics to Keflex and doxycycline along with ER precautions reviewed. Departure Disposition: HOME / SELF CARE / HOMELESS Impression: Primary Impression: Abscess Additional Impression: Cellulitis Condition: Stable Discharge Instructions: Abscess, Care After Referrals: NO PRIMARY CARE PROVIDER (PCP) Prescriptions Cephalexin*Monohydrate* (Keflex*) 500 Mg Capsule 1 CAP PO Q12H for 10 Days, #20 CAP Prov: ANGEL GUNDERSON MD 03/19/25 Doxycycline Monohydrate (Doxycycline Monohydrate) 100 Mg Capsule 1 CAP PO Q12H for 10 Days, #20 CAP Prov: ANGEL GUNDERSON MD 03/19/25 Education Educated: Patient Educated regarding: diagnosis, treatment, need for follow up Signature Scribe Signature: No scribe Attestation: The note accurately reflects work and decisions made by me.Angel Gunderson MD 03/19/25 23:23 JANNA CASON March 19, 2025 18:02 ANGEL GUNDERSON MD March 19, 2025 22:31
[2025-03-19] MEDS: bacitracin 15gm ointment TP ONE (22:45)
[2025-03-19] MEDS: HYDROcodone/acetaminophen 10/325mg tab PO ONE (22:46)
[2025-03-19] MEDS: cephalexin 250mg capsule PO ONE (22:46)
[2025-03-19] MEDS: ondansetron 4mg rapidly disintigrating tab PO ONE (22:47)
[2025-03-19] MEDS: DOXYCYCLINE 100MG CAPSULE PO STA (22:47)
[2025-03-19] MEDS: LIDOcaine 1% W/epiNEPHrine 1:200,000 10ml vial IJ ONE (23:02)
[2025-03-19] MEDS: LIDOcaine 1% W/epiNEPHrine 1:100,000 20ml vial SQ ONE (23:03)
[2025-03-19] MEDS ORDERED: CEPH-585 PO (23:22)
[2025-03-19] MEDS ORDERED: DOXY-460 PO (23:22)
[2025-03-19 23:38] VITALS: BP 130/70; PULSE 64; RESP 16; TEMP 98.1; O2SAT 94
== END 2025-03-19 23:47 | disposition home or self-care (01) ==
LOC: ER 17:12
DX: L02.416 Cutaneous abscess of left lower limb (principal); L03.116 Cellulitis of left lower limb; Z88.5 Allergy status to narcotic agent
CPT/HCPCS: 10060; 87070; 87077; 87186; 99284; A6258; A6446; A6449